=== PATIENT | female | born 1940 | race Two or more races ===

== ENCOUNTER 2019-11-14 09:23 | Emergency (ER) | payer OTHER, MEDICAID ==
[~2019-11-14] VITALS: Ht 165.1 cm; Wt 90.7 kg
[2019-11-14 10:38] LABS: BASOPHIL % 0.5 % (0-2); PLATELET COUNT 227 x10^3mcL (130-400)
[2019-11-14 10:59] LABS: CALCIUM 9.2 mg/dL (8.5-10.1); CARBON DIOXIDE 26.2 mmol/L (21-32); CHLORIDE SERUM 108 mmol/L (98-107); CREATININE SERUM 1.2 mg/dL (0.6-1.0); GLUCOSE SERUM 109 mg/dL (74-106); SODIUM SERUM 145 mmol/L (136-145)
[2019-11-14 11:04] LABS: ALKALINE PHOSPHATASE 79 U/L (46-116); ALT/SGPT 24 U/L (14-59); AST/SGOT 15 U/L (15-37); BILIRUBIN TOTAL 0.3 mg/dL (0.20-1.00); LIPASE 62 IU/L (73-393); TOTAL PROTEIN, SERUM 6.9 g/dL (6.4-8.2); TRIGLYCERIDES 118 mg/dL (<150)
[2019-11-14 11:11] LABS: ALBUMIN 3.2 g/dL (3.4-5.0); CHOLESTEROL 101 mg/dL (<200); CHOLESTEROL/HDL RATIO 3.1; HDL CHOLESTEROL 33 mg/dL (40-60)
[2019-11-14 11:33] LABS: T3 TOTAL 1.21 ng/mL
[2019-11-14 12:48] LABS: FREE T4 0.98 ng/dL (0.76-1.46); FREE THYROXINE INDEX 2.2 ug/dL (1.4-4.5); T4(THYROXINE) 6.1 ug/dL (4.7-13.3)
[2019-11-14 15:15] VITALS: BP 145/68
== END 2019-11-14 15:15 | disposition home or self-care (01) ==
LOC: ED 09:23
PROVIDERS: Specialist
DX: R42 Dizziness and giddiness (principal); R11.0 Nausea; I10 Essential (primary) hypertension; E11.9 Type 2 diabetes mellitus without complications
CPT/HCPCS: 36415; 83880; 84439; Q0092

== ENCOUNTER 2020-10-04 10:37 | Emergency (ER) | payer OTHER, MEDICAID ==
[~2020-10-04] VITALS: Ht 160 cm; Wt 87.5 kg
[2020-10-04 10:49] VITALS: BP 185/69; Ht 160 cm; Wt 87.5 kg
[2020-10-04] MEDS ORDERED: MOT600 PO (12:20)
== END 2020-10-04 12:29 | disposition home or self-care (01) ==
LOC: ED 10:37
DX: S83.92XA Sprain of unspecified site of left knee, initial encounter (principal); I10 Essential (primary) hypertension; E11.9 Type 2 diabetes mellitus without complications; Z90.710 Acquired absence of both cervix and uterus; Z90.89 Acquired absence of other organs; Z98.890 Other specified postprocedural states; X50.1XXA Overexertion from prolonged static or awkward postures, initial encounter; Y93.89 Activity, other specified; Y92.89 Other specified places as the place of occurrence of the external cause; Y99.8 Other external cause status